=== PATIENT | male | born 1945 | race African-American/Black ===

== ENCOUNTER 2024-12-03 17:40 | Emergency (ER) | payer MEDICARE, OTHER ==
[~2024-12-03 17:40] MED LIST: Iopamidol-370 76% 500 ML MDV (1 ML CHARGE) ONE
[2024-12-03 18:04] LABS: #Basophils 0.07 10x3/uL (0.0-0.2); #Eosinophils 0.53 10x3/uL (0.0-0.7); #Monocytes 0.57 10x3/uL (0.11-0.59); #Neutrophils 3.81 10x3/uL (1.40-6.50); %Basophils 1.1 % (0.0-1.0); %Eosinophils 8.6 % (0.0-10.0); %Lymphocytes 18.8 % (21.0-51.0); %Monocytes 9.2 % (0.0-10.0); %Neutrophils 61.8 % (42.0-75.0); Hematocrit 34.3 % (42.0-52.0); Hemoglobin 11.0 g/dL (14.0-18.0); Mean Corpuscular Hemoglobin 30.1 pg (27.0-31.0); Mean Corpuscular Volume 93.7 fL (78.0-98.0); Platelet Count 258 10x3/uL (130-400); Red Blood Cell (RBC) Count 3.66 mill/uL (4.70-6.10); White Blood Cell (WBC) Count 6.17 10x3/uL (4.8-10.8)
[2024-12-03 18:18] LABS: INR-International Normal Ratio 1.2; PTT 38.0 sec (22.9-36.1); Prothrombin Time 15.5 sec (12.0-14.7)
[2024-12-03 18:20] LABS: ALT (SGPT) 9 U/L (Less than 45); AST (SGOT) 27 U/L (11-34); Albumin 3.8 g/dL (3.1-4.5); Alkaline Phosphatase 82 U/L (40-110); Anion Gap 13 mmol/L (10-20); BUN (Urea Nitrogen) 20 mg/dL (8.4-25.7); Bilirubin, Total 0.4 mg/dL (0.3-1.2); Calc. Creatinine Clearance 0 mL/min (70-130); Calcium 8.5 mg/dL (7.8-10.44); Carbon Dioxide 25 mmol/L (23-31); Chloride 108 mmol/L (98-107); Globulin 4.5 g/dL (2.4-3.5); Glucose 100 mg/dL (83-110); Lipase 30 U/L (8-78); Potassium 3.9 mmol/L (3.5-5.1); Sodium 142 mmol/L (136-145)
[2024-12-03 19:34] LABS: Bacteria/HPF None Seen HPF (None Seen); CAUTI Indications for Culture Pelvic or flank pain; Glucose, Urine (Dipstick) Normal (Negative); Leukocyte Negative Leu/uL (Negative); Protein, Urine (Dipstick) Negative (Neg-Trace); RBC/HPF 0-3 HPF (0-3); Specific Gravity, Urine 1.043 (1.002-1.036); WBC/HPF 0-3 HPF (0-3)
[2024-12-03 19:36] LABS: Urine Culture Reflex No No
[2024-12-03 19:41] LABS: Cocaine Metabolite Screen Negative (Negative); THC/Cannabinoid Screen Negative (Negative); Tricyclic Screen Negative (Negative)
== END 2024-12-03 20:11 | disposition home or self-care (01) ==
LOC: ERS 17:40
DX: R07.2 Precordial pain (principal); R51.9 Headache, unspecified; H40.9 Unspecified glaucoma; H26.9 Unspecified cataract; Z55.6 Problems related to health literacy; V43.52XA Car driver injured in collision with other type car in traffic accident, initial encounter
CPT/HCPCS: 70450; 71045; 71260; 72125; 72170; 74177; 80053; 80306; 80307; 81001; 83690; 85025; 85610; 85730; 86850; 86900; 86901; 93005; 94760; 96374; 99285; J3010; Q9967; 36415